=== PATIENT | female | born 1955 | race Two or more races ===

== ENCOUNTER 2019-01-28 11:46 | Emergency (ER) | payer MEDICARE, OTHER ==
[~2019-01-28] VITALS: Ht 157.5 cm; Wt 69.0 kg
[2019-01-28 11:56] VITALS: BP 156/88
--- NOTE | 2019-01-28 12:06 | NUR ---
FIRST CONTACT WITH PT. PT C/O BACK PAIN STARTING YESTERDAY AFTER BENDING OVER WHILE WORKING. DENIES ANY FALLS OR RECENT TRAUMA. REFERRED TO ED FOR FOR IMAGING BY . PRIMARY LANGUAGE IS LAO. HER IS AT BEDSIDE. PT'A SOX4. RESPS EVEN AND UNLABORED.
[2019-01-28] MEDS ORDERED: OXYcodone/APAP 5/325MG TABLET ONE (12:13)
[2019-01-28] MEDS ORDERED: METHOCARBAMOL 750 MG TABLET ONE (12:13)
--- NOTE | 2019-01-28 12:16 | NUR ---
PT MEDICATED PER EMAR FOR PAIN. PT TOLERATED WELL.
[2019-01-28] MEDS ORDERED: METHOCARBAMOL 750 MG TABLET PO ONE (12:30)
[2019-01-28] MEDS ORDERED: OXYcodone/APAP 5/325MG TABLET PO ONE (12:30)
== END 2019-01-28 13:25 | disposition home or self-care (01) ==
LOC: ED 13:19
DX: S39.012A Strain of muscle, fascia and tendon of lower back, initial encounter (principal); M51.36 Other intervertebral disc degeneration, lumbar region; X58.XXXA Exposure to other specified factors, initial encounter; Y93.89 Activity, other specified; Y92.89 Other specified places as the place of occurrence of the external cause; Y99.8 Other external cause status
CPT/HCPCS: 72072; 99283